=== PATIENT | female | born 1985 | race Caucasian/White ===

== ENCOUNTER 2024-09-27 05:01 | Emergency (ER) | payer MEDICAID ==
[~2024-09-27] VITALS: Ht 180.3 cm; Wt 73.2 kg
--- NOTE | 2024-09-27 05:04 | Physician Documentation ---
History of Present Illness ~ Stated Complaint: HEADACHE,BLURRED VISION Time Seen by MD: 05:03 OK to notify your PCP?: Yes Source: patient, RN/MD, RN notes reviewed Mode of Arrival: POV Exam Limitations: no limitations HPI 39 year old female seen in triage presents to the emergency department complaining of headaches that have been present for a few weeks. She states that it began with a headache that lasted a week and since then she has been getting intermittent headaches with dizziness, photosensitivity, and vision changes. She states that she will take ibuprofen for the pain. Patient denies any nausea or vomiting. Medication Reconciliation Allergies: Coded Allergies: No Known Allergies (Unverified , 09/27/24) Scheduled Sulfamethoxazole/Trimethoprim (Bactrim Ds Tablet), 1 TAB PO Q12H Scheduled PRN ONDANSETRON ODT 4mg tablet (Ondansetron Odt), 1 TAB PO Q6H PRN PRN for nausea/vomiting Past Medical History Past Medical History: No Pertinent History Other Past Surgical History: augmentation Smoking Status: Never smoker Alcohol Use: Occasionally Drug Use: none Review of Systems All Other Systems at this time: Reviewed and Negative ROS As stated above in the HPI, otherwise all systems are reviewed and negative. Physical Exam Vital Signs: RN Vital Signs have been reviewed: Yes Pulse Oximetry Reflects: adequate oxygenation Physical Exam General: The patient is well developed, well nourished, nontoxic appearing and is in no acute distress. Skin: [place], warm and dry with no rashes. HEENT: Head was normocephalic and atraumatic. Eyes - pupils equal, round, reactive to light and accommodation. Extraocular movements were intact. Conjunctivae were nonicteric. Ears - bilateral tympanic membranes were normal. The mouth and oropharynx were clear with moist mucous membranes. There were no pharyngeal exudates or erythema. Neck: Supple and nontender. There was no jugular venous distention, lymphadenopathy, thyromegaly or masses. Chest: Clear to auscultation bilaterally without wheezes, rales or rhonchi. No accessory muscle use. No dullness to percussion. Heart: Rate regular and rhythmic. S1, S2. No murmurs. Palpation of the chest wall was normal. No rubs or thrills. Abdomen: Soft, nontender and nondistended. Positive bowel sounds. No guarding or rebound. No hepatosplenomegaly or palpable masses. Extremities: No cyanosis, clubbing or edema. The patient moves all extremities. Pulses were equal and symmetric. Neurologic: Cranial nerves II-XII were intact. Sensation was intact to light touch throughout. Motor strength was 5/5 in all four extremities. Deep tendon reflexes were intact in both upper and lower extremities. Psychologic: The patient was oriented to person, place and time. The patient demonstrated appropriate judgement and insight. Progress Results/Orders Results/Orders Medications Received in ER Medications (Trade) Dose Ordered Sig/Sonja Route PRN Reason Start Time Stop Time Status Last Admin Dose Admin (Compazine inj) 10 mg ONCE ONCE IV 09/27/24 05:25 09/27/24 05:26 DC 09/27/24 05:59 10 MG (Toradol injection) 15 mg ONCE ONCE IV 09/27/24 05:25 09/27/24 05:26 DC 09/27/24 05:58 15 MG (0.9% sodium chloride (NS) 1000ml IV soln) 1,000 ml ONCE ONCE IVB 09/27/24 05:25 09/27/24 05:26 DC 09/27/24 06:03 1,000 ML (Decadron 10mg/ ml inj) 10 mg ONCE STAT IV 09/27/24 05:21 09/27/24 05:23 DC 09/27/24 06:03 10 MG Vital Signs 09/27/24 09/27/24 09/27/24 09/27/24 05:03 05:58 06:06 06:26 Temp 96.3 96.3 Pulse 85 69 69 Resp 15 16 16 14 B/P (MAP) 126/86 122/80 (94) 122/80 (94) Pulse Ox 100 100 100 O2 Flow Rate 0 09/27/24 09/27/24 09/27/24 06:53 07:49 07:51 Temp 96.3 Pulse 77 Resp 15 14 15 B/P (MAP) 121/82 Pulse Ox 98 Laboratory Tests Test 09/27/24 05:50 09/27/24 07:29 White Blood Count 4.6 Red Blood Count 4.94 Hemoglobin 15.4 Hematocrit 45.3 H Mean Corpuscular Volume 91.6 Mean Corpuscular Hemoglobin 31.2 H Mean Corpuscular Hemoglobin Concent 34.1 Red Cell Distribution Width 13.3 Platelet Count 285 Mean Platelet Volume 9.2 Neutrophils (%) (Auto) 45.9 Lymphocytes (%) (Auto) 41.9 Monocytes (%) (Auto) 10.0 Eosinophils (%) (Auto) 1.6 Basophils (%) (Auto) 0.6 Neutrophils # (Auto) 2.1 Lymphocytes # (Auto) 1.9 Monocytes # (Auto) 0.5 Eosinophils # (Auto) 0.1 Basophils # (Auto) 0.0 CBC Comment Erythrocyte Sedimentation Rate 1 Sodium Level 138 Potassium Level 3.5 Chloride Level 104 Carbon Dioxide Level 26.8 Anion Gap 7 L Blood Urea Nitrogen 6 L Creatinine 0.64 Estimated GFR/1.73 m2 > 90 BUN/Creatinine Ratio 9.4 L Glucose Level 92 Hemoglobin A1c 4.8 Calcium Level 8.6 Magnesium Level 1.7 Total Bilirubin 0.6 Aspartate Amino Transf (AST/SGOT) 22 Alanine Aminotransferase (ALT/SGPT) 29 Alkaline Phosphatase 65 C-Reactive Protein 0.05 Total Protein 7.8 Albumin 4.0 Globulin 3.8 Albumin/Globulin Ratio 1.1 Triglycerides Level 101 Cholesterol Level 167 LDL Cholesterol 93 HDL Cholesterol 52 Cholesterol/HDL Ratio 3.2 Lipase 32 Procalcitonin < 0.05 Thyroid Stimulating Hormone (TSH) 6.22 H Free Thyroxine 1.09 Chemistry Comments EKG/XRAY/CT/US/VASC/MRI CT : Impression EXAM: CT CT HEAD INDICATION: aloc TECHNIQUE: CT of the head without intravenous contrast. Coronal and sagittal reformatted images are submitted. Radiation Dose : 1. Head: CT Dose: CTDI volume is 62.6 mGy. Dose-length product is 1020.5 mGy*cm The dose indicators for CT are the volume Computed Tomography (CT) Dose Index (CTDIvol) and the Dose Length Product (DLP), and are measured in units of mGy and mGy-cm, respectively. These indicators are not patient dose, but values generated from the CT scanner acquisition factors. The report includes radiation exposure data for exposures received during this examination. All CT scans at this medical facility are performed using dose modulation techniques as appropriate to a performed exam including the following: Automated exposure control was utilized; adjustment of the MA and/or KV according to patient size; and use of iterative reconstruction technique. COMPARISON: None FINDINGS: There is no evidence of acute intracranial hemorrhage, extra-axial collection, mass effect, midline shift, herniation or hydrocephalus. The ventricles, sulci and cisterns are age appropriate. The prado-white differentiation is intact. The visualized paranasal sinuses and mastoid air cells are clear. No depressed calvarial fracture. The surrounding soft tissues are unremarkable. IMPRESSION: 1. No evidence of acute intracranial abnormality. Departure Disposition: HOME / SELF CARE / HOMELESS Impression: Primary Impression: Atypical headache Condition: Stable Discharge Instructions: Headache Referrals: NO PRIMARY CARE PROVIDER (PCP) Prescriptions Sulfamethoxazole/Trimethoprim (Bactrim Ds Tablet) 800 Mg-160 Mg Tablet 1 TAB PO Q12H for 10 Days, #20 TAB Prov: YRAN MADRIGAL MD 09/27/24 ONDANSETRON ODT 4mg tablet (ONDANSETRON ODT) 4 Mg Tab.rapdis 1 TAB PO Q6H PRN PRN for nausea/vomiting for 10 Days, #30 TAB 0 Refills Prov: RYAN MADRIGAL MD 09/27/24 Education Educated: Patient, Family Educated regarding: diagnosis, treatment, prognosis, need for follow up Signature Scribe Signature: Scribed for Ryan Madrigal MD by Beck Arita . 09/27/24 05:18 RYAN MADRIGAL MD Sep 27, 2024 05:04 BECK JULIEN Sep 27, 2024 05:18 TING SNOWDEN MD Sep 27, 2024 09:39
[2024-09-27] MEDS: ketorolac trometh 15mg/ml vial 15 MG/ML ML IV ONE (05:58)
[2024-09-27] MEDS: dexamethasone sod phosphate 10mg/ml inj IV STA (06:03)
[2024-09-27] MEDS: normal saline 1000ML IV soln IVB ONE (06:03)
[2024-09-27 06:09] LABS: MEAN PLATELET VOLUME 9.2 FL (7.4-10.4); RED CELL DISTRIBUTION WIDTH 13.3 % (11.5-14.5)
[2024-09-27 06:28] LABS: CREATININE 0.64 MG/DL (0.40-0.90); TOTAL CARBON DIOXIDE 26.8 MMOL/L (24-32); eCRCL 132 ML/MIN; eGFR > 90 ML/MIN
[2024-09-27 06:36] LABS: CHOL/HDL RATIO 3.2 (0.00-4.99); LDL CHOLESTEROL 93 MG/DL (50-100)
--- NOTE | 2024-09-27 06:42 | RADIOLOGY REPORT ---
EXAM: CT CT HEAD INDICATION: aloc TECHNIQUE: CT of the head without intravenous contrast. Coronal and sagittal reformatted images are s ubmitted. Radiation Dose : 1. Head: CT Dose: CTDI volume is 62.6 mGy. Dose-length product is 1020.5 mGy*cm The dose indicators for CT are the volume Computed Tomography (CT) Dose Index (CTDIvol) and the Dose Length Product (DLP), and are measured in units of mGy and mGy-cm, respectively. These indicators are not patient dose, but values generated from the CT scanner acquisition factors. The report includes radiation exposure data for exposures received during this examination. All CT scans at this medical facility are performed using dose modulation techniques as appropriate to a performed exam including the following: Automated exposure control was utilized; adjustment of the MA and/or KV according to patient size; and use of iterative reconstruction technique. COMPARISON: None FINDINGS: There is no evidence of acute intracranial hemorrhage, extra-axial collection, mass effect, midline s hift, herniation or hydrocephalus. The ventricles, sulci and cisterns are age appropriate. The prado-white differentiation is intact. The visualized paranasal sinuses and mastoid air cells are clear. No depressed calvarial fracture. The surrounding soft tissues are unremarkable. IMPRESSION: 1. No evidence of acute intracranial abnormality.
[2024-09-27] MEDS ORDERED: SULF1TAB49 PO (07:32)
[2024-09-27] MEDS ORDERED: ONDA-243 PO (07:32)
[2024-09-27 07:51] VITALS: BP 121/82; PULSE 77; RESP 15; TEMP 96.3; O2SAT 98
== END 2024-09-27 08:20 | disposition home or self-care (01) ==
LOC: ER 05:02
DX: R51.9 Headache, unspecified (principal); R42 Dizziness and giddiness; L56.8 Other specified acute skin changes due to ultraviolet radiation; Z79.899 Other long term (current) drug therapy; Z72.89 Other problems related to lifestyle
CPT/HCPCS: 36415; 70450; 80053; 80061; 83036; 83690; 83735; 84145; 84439; 84443; 84480; 85025; 85651; 86140; 96361; 96374; 96375; 99285; J0780; J1100; J1885; J7030